=== PATIENT | male | born 1955 | race African-American/Black ===

== ENCOUNTER 2018-07-26 18:32 | Inpatient (IN) ==
[2018-07-26 20:49] LABS: Basophils % 0.1 % (0.0-0.8); Hematocrit 30.1 VOL% (42.0-52.0); Hemoglobin 10.6 GM/DL (14.0-18.0); Immature Granulocytes % 1.4 %; Immature Granulocytes Absolute 0.12 #; Lymphocytes # 0.4 10*3/uL (1.4-4.0); Lymphocytes % 4.3 % (21.2-54.2); Mean Corpuscular HGB Conc 35.2 GM/DL (32-36); Mean Corpuscular Hemoglobin 34 PG (27-34); Mean Corpuscular Volume 95.9 FL (87-102); Mean Platelet Volume 11.6 FL (9.6-12.0); Monocytes # 0.2 10*3/uL (0.11-0.8); NRBC # 0.03 10*3/uL; Neutrophils # 8.1 10*3/uL (1.4-7.4); Neutrophils % 92.2 % (38.7-73.9); Platelet Count 146 T/CUMM (130-400); Red Blood Count 3.14 MC/CUMM (3.8-5.5); Red Cell Distribution Width 23.4 % (9.3-17.3); White Blood Count 8.8 T/CUMM (4-12)
[2018-07-26 21:09] LABS: Albumin 1.3 G/DL (3.4-5.0); Calcium 8.3 MG/DL (8.5-10.1); Osmolality,Calculated 286.2 MOS/KG (273-304); Potassium 3.6 MMOL/L (3.5-5.1); Total Protein 5.7 G/DL (6.4-8.3)
[2018-07-26 21:11] LABS: Bilirubin,Total 24.8 MG/DL (0.2-1.0)
[2018-07-26 21:27] LABS: Band Neutrophils 5 % (0-10); Lymphocytes 4 % (20-55); Platelet Estimate Decreased; Segmented Neutrophils 89 % (50-85); Total Cells Counted 100
[2018-07-26 21:28] LABS: Hypochromasia 2+
[2018-07-26 21:43] LABS: INR 11.7; PT Patient Result 124.6 SECS; Partial Thromboplastin Time 63.7 SECS (0-40)
[2018-07-26] MEDS ORDERED: ONDANSETRON 4 MG/2 ML VIAL IV PRN (23:32)
[2018-07-26] MEDS ORDERED: SODIUM CHLORIDE 0.9% 1,000 ML IV PRN (23:40)
[2018-07-26] MEDS ORDERED: PHYTONADIONE 5 MG/5 ML ORAL.SYR PO ONE (23:41)
[2018-07-27] MEDS: SODIUM CHLORIDE 0.9% 1,000 ML IV SCH ×3 (00:19→23:34)
[2018-07-27] MEDS ORDERED: GLUCAGON 1 MG VIAL IM PRN (02:23)
[2018-07-27] MEDS ORDERED: DEXTROSE 50% 25 GM/50 ML SYRINGE IV PRN (02:23)
[2018-07-27] MEDS ORDERED: INFLUENZA VIRUS VACCINE 0.5 ML SYRINGE IM ONE (02:36)
[2018-07-27 07:22] LABS: Basophils % 0.1 % (0.0-0.8); Hemoglobin 10.1 GM/DL (14.0-18.0); Immature Granulocytes % 0.6 %; Immature Granulocytes Absolute 0.05 #; Lymphocytes # 0.4 10*3/uL (1.4-4.0); Lymphocytes % 4.5 % (21.2-54.2); Mean Corpuscular HGB Conc 36.1 GM/DL (32-36); Mean Corpuscular Hemoglobin 34 PG (27-34); Mean Corpuscular Volume 95.2 FL (87-102); Mean Platelet Volume 11.4 FL (9.6-12.0); Monocytes # 0.4 10*3/uL (0.11-0.8); Monocytes % 4.8 % (1.7-12.7); NRBC # 0.03 10*3/uL; Neutrophils # 7.1 10*3/uL (1.4-7.4); Platelet Count 120 T/CUMM (130-400); Red Blood Count 2.94 MC/CUMM (3.8-5.5); Red Cell Distribution Width 23.7 % (9.3-17.3); White Blood Count 7.9 T/CUMM (4-12)
[2018-07-27 07:36] LABS: INR 3.5
[2018-07-27 07:43] LABS: Lymphocytes 5 % (20-55); Platelet Estimate Decreased; Segmented Neutrophils 91 % (50-85); Total Cells Counted 100
[2018-07-27 07:44] LABS: Hypochromasia 1+; Target Cells Few
[2018-07-27 07:45] LABS: PT Patient Result 37.9 SECS
[2018-07-27 07:50] LABS: Albumin 1.6 G/DL (3.4-5.0); Calcium 8.2 MG/DL (8.5-10.1); Total Protein 5.7 G/DL (6.4-8.3)
[2018-07-27 07:53] LABS: Bilirubin,Total 23.4 MG/DL (0.2-1.0)
[2018-07-27] MEDS ORDERED: PHYTONADIONE 5 MG/5 ML ORAL.SYR PO ONE (09:42)
[2018-07-27] MEDS: INSULIN REGULAR 100 UNIT/ML SUBCUT SCH ×4 (11:54→20:09)
[2018-07-27] MEDS: PANTOPRAZOLE 40 MG TABLET PO SCH (12:35)
[2018-07-28 04:25] LABS: Basophils % 0.1 % (0.0-0.8); Hematocrit 28.5 VOL% (42.0-52.0); Hemoglobin 10.3 GM/DL (14.0-18.0); Immature Granulocytes % 0.6 %; Immature Granulocytes Absolute 0.06 #; Lymphocytes # 0.3 10*3/uL (1.4-4.0); Lymphocytes % 3.3 % (21.2-54.2); Mean Corpuscular HGB Conc 36.1 GM/DL (32-36); Mean Corpuscular Hemoglobin 34 PG (27-34); Mean Corpuscular Volume 94.4 FL (87-102); Mean Platelet Volume 11.7 FL (9.6-12.0); Monocytes # 0.2 10*3/uL (0.11-0.8); Monocytes % 2.4 % (1.7-12.7); NRBC # 0.03 10*3/uL; Neutrophils # 8.7 10*3/uL (1.4-7.4); Neutrophils % 93.6 % (38.7-73.9); Platelet Count 126 T/CUMM (130-400); Red Blood Count 3.02 MC/CUMM (3.8-5.5); Red Cell Distribution Width 23.3 % (9.3-17.3); White Blood Count 9.3 T/CUMM (4-12)
[2018-07-28 04:46] LABS: Calcium 7.8 MG/DL (8.5-10.1); Osmolality,Calculated 296.5 MOS/KG (273-304); Potassium 3.2 MMOL/L (3.5-5.1)
[2018-07-28 05:00] LABS: Lymphocytes 3 % (20-55); Nucleated Red Blood Cells 1 (0-5); Segmented Neutrophils 94 % (50-85); Total Cells Counted 100
[2018-07-28 05:01] LABS: Hypochromasia 2+; Platelet Estimate Decreased; Target Cells 2+
[2018-07-28] MEDS ORDERED: POTASSIUM CHLORIDE 20 MEQ TABLET PO ONE (09:24)
[2018-07-28] MEDS: PANTOPRAZOLE 40 MG TABLET PO SCH (11:05)
[2018-07-28] MEDS: INSULIN REGULAR 100 UNIT/ML SUBCUT SCH ×3 (11:06→18:42)
[2018-07-28 16:23] VITALS: BP 108/65
[2018-07-28] MEDS: SODIUM CHLORIDE 0.9% 1,000 ML IV SCH (18:47)
== END 2018-07-28 18:41 | disposition hospice, home (50) | DRG 813 ==
LOC: EDBD → EDUNIT# → N.ED 18:32 → N.EDINP 23:47 → N.4E 07-27 01:53
PROVIDERS: ADMIT Family Medicine; ATTEND Family Medicine